=== PATIENT | female | born 1990 | race Hispanic/Latino ===

== ENCOUNTER 2018-10-14 00:50 | Inpatient (IN) | payer OTHER ==
[2018-10-14] MEDS ORDERED: OXYTOCIN/LR 20 UNIT/1,000 ML BAG IV SCH (07:30)
[2018-10-14] MEDS ORDERED: Ringers Lactate 1,000 ML IV PRN (07:49)
[2018-10-14] MEDS ORDERED: PROMETHAZINE 25 MG/ML VIAL IV PRN (07:49)
[2018-10-14] MEDS ORDERED: BUTORPHANOL 1 MG/ML INJ IV PRN (07:49)
[2018-10-14] MEDS ORDERED: FENTANYL CITR 100 MCG/2 ML IV ONE (08:00)
[2018-10-14] MEDS ORDERED: ROPIVACAINE HCL 100 ML IV PRN (08:00)
[2018-10-14] MEDS ORDERED: PENICILLIN G POT 5 MU/100 ML VIAL IV ONE (08:00)
[2018-10-14] MEDS ORDERED: Ringers Lactate 1,000 ML IV SCH (08:00)
[2018-10-14] MEDS ORDERED: ROPIVACAINE HCL 0.2% 20ML AMP IV ONE (08:02)
[2018-10-14 08:12] LABS: RPR Titer ND
[2018-10-14 08:15] LABS: Urine Appearance CLEAR; Urine Bilirubin NEGATIVE (NEG); Urine Blood NEGATIVE (NEG); Urine Color YELLOW; Urine Glucose NEGATIVE (NEG); Urine Protein 1+ (NEG)
[2018-10-14 08:16] LABS: Absolute Lymphocytes (CBC) 2.2 K/uL (0.7-4.9); Absolute Monocytes 0.4 K/uL (0.1-1.3); Absolute Neutrophil 3.9 K/uL (1.8-8.0); Basophils % 0.9 % (0-1.3); Eosinophils % 0.8 % (0-4.4); Hematocrit 35.2 % (36.0-45.0); Lymphocytes % 33.6 % (15.3-44.8); MPV 8.8 fL (7.6-11.3); RBC Red Blood Cell Count 4.58 M/uL (3.86-4.86)
[2018-10-14 08:30] LABS: Urine Microscopic Reflex ORDER UMIC
[2018-10-14 08:45] LABS: Urine Bacteria <20 /HPF (<20); Urine Culture Reflex Order NOT NEEDED; Urine Mucus 1+ /HPF (NONE SEEN)
[2018-10-14 09:40] VITALS: BMI 43.9
[2018-10-14] MEDS ORDERED: ONDANSETRON 4 MG/2 ML VIAL IV ONE (09:51)
[2018-10-14] MEDS ORDERED: FAMOTIDINE 20 MG/2 ML VIAL IV PRN (09:55)
--- NOTE | 2018-10-14 10:05 | P.PN ---
Date of Service: 10/14/18 Patient is a 28-year-old 001 obese female at 39 weeks and 1 day gestation who presents for induction of labor. She is GBS positive. She has been admitted for induction. Penicillin has been given. Pitocin has been started. Rupture of membranes was performed. Clear fluid was noted. Cervix was found to be 3 cm dilated 50% effaced-3 station. Patient desires epidural. Anesthesia has been contacted. Laboratory Tests 10/14/18 10/14/18 07:30 07:30 WBC 6.6 Hgb 11.8 L Hct 35.2 L Plt Count 240 Urine Total Protein 1+ H Continue maternal monitoring. Pitocin is being given for labor augmentation. Anesthesia has been contacted. Patient and her 's questions were answered.
[2018-10-14] MEDS ORDERED: ONDANSETRON 4 MG/2 ML VIAL ONE ×2 (10:10→23:29)
[2018-10-14] MEDS ORDERED: FAMOTIDINE 20 MG/2 ML VIAL IV ONE (10:10)
[2018-10-14] MEDS ORDERED: PENICILLIN 2.5 MU in NA CHLORIDE 0.9% 100 ML IV SCH (12:00)
[2018-10-14] MEDS ORDERED: METHYLERGONOVINE 0.2MG/ML AMP IM ONE ×2 (20:37→21:19)
[2018-10-14] MEDS ORDERED: LIDOCAINE 2% 20 ML MDV IV ONE (20:37)
[2018-10-14] MEDS ORDERED: CARBOPROST TROME 250 MCG/ML IM ONE ×2 (20:37→21:19)
[2018-10-14] MEDS ORDERED: LIDOCAINE 1% MPF 30 ML VIAL ONE (21:32)
[2018-10-14] MEDS ORDERED: BISACODYL 10 MG RECTAL SUPP RECT PRN (23:26)
[2018-10-14] MEDS ORDERED: DOCUSATE NA/SENNA CONC 1 TAB PO PRN (23:26)
[2018-10-14] MEDS ORDERED: Oxycodone HCl/Acetaminophen 1 TAB TAB PO PRN (23:26)
[2018-10-14] MEDS ORDERED: METHYLERGONOVINE 0.2 MG TAB PO PRN (23:26)
[2018-10-14] MEDS ORDERED: ONDANSETRON 4 MG (ODT) TAB PO PRN (23:26)
[2018-10-14] MEDS ORDERED: IBUPROFEN 200 MG TAB PO PRN (23:26)
[2018-10-14] MEDS ORDERED: ACETAMINOPHEN 500 MG TAB PO PRN (23:26)
--- NOTE | 2018-10-14 23:29 | P.OP ---
Date of Service: 10/14/18 Findings and Operative Technique The patient delivered a viable male infant in cephalic presentation on September at 10:58 p.m.. was delivered over a midline episiotomy. Once infant was delivered shoulder dystocia was in countered. Make Carlos A procedure was performed. The remainder of the was then delivered. Once the infant was delivered the nose and mouth were suctioned with suction bulb. Cord was clamped and cut and infant was placed on mother's abdomen for skin to skin bonding. Cord blood was then obtained delivered with gentle traction at 11:01 p.m.. Placenta was examined and noted to be intact. Brisk bleeding was then and countered. Pitocin was bolused. Methargen was given IM. Bleeding was still continuing therefore Hemabate was given IM. Uterine massage was also performed. Once hemostasis was achieved. Attention was then turned to the midline episiotomy which was repaired with a 2 0 Vicryl in the usual fashion. He was noted to be second-degree laceration. Patient tolerated procedures well. She became very nauseous following the delivery. Estimated blood loss was noted to be 500 cc. Patient will be monitored for hemorrhage. 1st stage of labor was found to be 12 hr and 20 min. 2nd stage was 43 min. Apgars were 9 and 9. Weight was found to be 8 lb 8 oz. Both mom and baby are doing well. There bonding with had any issues. She is going to breast feed.
[2018-10-14 23:53] LABS: RPR (Rapid Plasma Reagin) NON-REACT (NON-REACT)
[2018-10-15 04:37] LABS: Absolute Lymphocytes (CBC) 0.8 K/uL (0.7-4.9); Absolute Monocytes 0.8 K/uL (0.1-1.3); Absolute Neutrophil 13.1 K/uL (1.8-8.0); Basophils % 0.3 % (0-1.3); Hematocrit 32.2 % (36.0-45.0); Lymphocytes % 5.7 % (15.3-44.8); MPV 8.3 fL (7.6-11.3); Monocytes % 5.4 % (3.3-12.3); RBC Red Blood Cell Count 4.17 M/uL (3.86-4.86)
[2018-10-15 05:53] LABS: Blood Morphology Comment NOT SEEN (NOT SEEN); Platelet Estimate ADEQ
[2018-10-15] MEDS: Oxycodone HCl/Acetaminophen 1 TAB TAB PO PRN (20:05)
[2018-10-16] MEDS: Oxycodone HCl/Acetaminophen 1 TAB TAB PO PRN (05:31)
[2018-10-16 08:56] VITALS: BP 107/69; TEMP 97.6
[2018-10-20 19:52] LABS: HBsAG Nonreactive (Nonreactive)
== END 2018-10-16 09:50 | disposition home or self-care (01) | DRG 806 ==
LOC: 2ND-WC 07:24
PROVIDERS: ADMIT Student in an Organized Health Care Education/Training Program; ATTEND Student in an Organized Health Care Education/Training Program
PROC: 10E0XZZ Delivery of Products of Conception, External Approach (ICD-10-PCS; principal; 2018-10-14)
PROC: 0KQM0ZZ Repair Perineum Muscle, Open Approach (ICD-10-PCS; 2018-10-14)
PROC: 0W8NXZZ Division of Female Perineum, External Approach (ICD-10-PCS; 2018-10-14)
PROC: 10907ZC Drainage of Amniotic Fluid, Therapeutic from Products of Conception, Via Natural or Artificial Opening (ICD-10-PCS; 2018-10-14)
PROC: 3E033VJ Introduction of Other Hormone into Peripheral Vein, Percutaneous Approach (ICD-10-PCS; 2018-10-14)
DX: O99.214 Obesity complicating childbirth (principal); Z68.41 Body mass index [BMI] 40.0-44.9, adult; Z37.0 Single live birth; O99.814 Abnormal glucose complicating childbirth; R73.02 Impaired glucose tolerance (oral); O99.824 Streptococcus B carrier state complicating childbirth; O66.0 Obstructed labor due to shoulder dystocia; O70.1 Second degree perineal laceration during delivery; Z3A.39 39 weeks gestation of pregnancy
CPT/HCPCS: 36415; 81003; 81015; 85014; 85025; 86592; 86901; 87340; 88307; J2210; J2405; J2590; J2795; J3010